=== PATIENT | male | born 1965 | race Caucasian/White ===

== ENCOUNTER 2017-02-11 10:40 | Emergency (ER) | payer OTHER ==
[~2017-02-11] VITALS: Ht 167.6 cm; Wt 76.3 kg
[~2017-02-11 10:40] MED LIST: DEPAKOTE500 MG PO; DESYREL100 MG PO; DIOVAN; DIOVAN80 MG PO; DIVALPROEX; GABAPENTIN300 MG PO; GEODON80 MG PO; LAMICTAL200 MG PO; OLEPTRO ER150 MG PO; RISPERIDONE0.5 MG PO; TOPAMAX100 MG PO; TOPIRAMATE; TRAZADONE; TRAZODONE HCL100 MG PO; TRAZODONE HCL300 MG PO; Topamax PO; ZOLOFT100 M1 PO
[2017-02-11 11:28] LABS: HEMATOCRIT 44.1 % (38.0-50.0); MCH 32.2 PG (29.0-34.0); MCHC 33.1 G/DL (30.0-36.0); MCV 97.4 FL (86-99); PLATELET COUNT 220 K/uL (156-360); RBC DIS.WIDTH-CV 13.2 % (11.8-14.6); RED BLOOD COUNT 4.53 M/uL (4.00-5.50); WHITE BLOOD COUNT 7.7 K/uL (4.1-10.2)
[2017-02-11 11:40] LABS: CHLORIDE 108 mEq/L (99-109); SODIUM 140 mEq/L (136-147)
[2017-02-11 11:41] LABS: GLUCOSE 88 mg/dL (70-99)
[2017-02-11 11:43] LABS: ANION GAP 9 MEQ/L (2-14)
[2017-02-11 11:45] LABS: GFR ESTIMATE (CALCULATED) > 59 mL/min/
[2017-02-11 11:46] LABS: UREA NITROGEN (BUN) 18 mg/dL (9-23)
[2017-02-11 11:57] LABS: ADD MIUA? YES; BILIRUBIN NEGATIVE; BLOOD NEGATIVE; COLOR YELLOW ((YELLOW)); GLUCOSE (STRIP) NEGATIVE; KETONES NEGATIVE; LEUKOCYTES NEGATIVE; NITRITE NEGATIVE; PROTEIN (STRIP) NEGATIVE; SPECIFIC GRAVITY 1.016 (1.000-1.030); UROBILINOGEN 0.2 MG/DL (0.2-1.0)
[2017-02-11 12:10] LABS: BACTERIA RARE /HPF; EPITHELIAL CELLS NONE SEEN /HPF; MUCUS TRACE /LPF; RED BLOOD CELLS 0-5 /HPF (0-5); WHITE BLOOD CELLS 0-5 /HPF (0-5)
[2017-02-11] MEDS ORDERED: ULTRAM50 MG PO (12:26)
[2017-02-11] MEDS ORDERED: LIDODERM 5% P1 PATCH TD (12:28)
[2017-02-11 13:11] VITALS: BP 133/82
== END 2017-02-11 13:10 | disposition home or self-care (01) ==
LOC: EME 10:40
PROVIDERS: Nurse Practitioner Family
DX: M25.552 Pain in left hip (principal); I70.0 Atherosclerosis of aorta; I25.10 Atherosclerotic heart disease of native coronary artery without angina pectoris; R26.2 Difficulty in walking, not elsewhere classified; M51.36 Other intervertebral disc degeneration, lumbar region; Z87.891 Personal history of nicotine dependence
CPT/HCPCS: 72100; 72170; 80048; 81003; 85027; 99281; 99283; J1885